=== PATIENT | female | born 1930 | race Caucasian/White ===

== ENCOUNTER 2018-04-24 04:10 | Inpatient (IN) | payer MEDICARE ==
[2018-04-24] MEDS ORDERED: Pantoprazole 40 MG VIAL ONE (04:42)
[2018-04-24 04:50] LABS: #Eosinphils 0.1 thou/uL (0.0-0.7); #Lymphocytes 1.7 thou/uL (1.20-3.40); #Monocytes 1.4 thou/uL (0.11-0.59); #Neutrophils 11.6 thou/uL (1.40-6.50); %Basophils 0.2 % (0.0-1.0); %Eosinophils 0.8 % (0.0-10.0); %Lymphocytes 11.3 % (21.0-51.0); %Monocytes 9.6 % (0.0-10.0); Hemoglobin 12.6 g/dL (12.0-16.0); Mean Corpuscular HGB CONC 32.4 g/dL (32.0-36.0); Mean Corpuscular Hemoglobin 28.7 pg (27.0-31.0); Mean Corpuscular Volume 88.7 fL (78.0-98.0); Mean Platelet Volume 8.3 fL (7.4-10.4); Platelet Count 235 thou/uL (130-400); RBC Distribution Width 12.4 % (11.5-14.5); Red Blood Cell (RBC) Count 4.38 mill/uL (4.20-5.40); White Blood Cell (WBC) Count 14.8 thou/uL (4.8-10.8)
[2018-04-24 05:18] LABS: ALT (SGPT) Less than 7 U/L (8-55); AST (SGOT) 14 U/L (5-34); Albumin 3.6 g/dL (3.4-4.8); Alkaline Phosphatase 88 U/L (40-150); Anion Gap 14 mmol/L (10-20); BUN (Urea Nitrogen) 18 mg/dL (9.8-20.1); Bilirubin, Total 0.6 mg/dL (0.2-1.2); Calc. Creatinine Clearance 0 mL/min (70-130); Calcium 9.6 mg/dL (7.8-10.44); Carbon Dioxide 28 mmol/L (23-31); Chloride 100 mmol/L (98-107); Estimated GFR-MDRD 56; Globulin 3.1 g/dL (2.4-3.5); Glucose 134 mg/dL (83-110); Lipase 15 U/L (8-78); Protein, Total 6.7 g/dL (6.0-8.3); Sodium 139 mmol/L (136-145)
[2018-04-24] MEDS ORDERED: Piperacillin/Tazobactam 4.5 GM VIAL ONE (06:38)
[2018-04-24] MEDS ORDERED: Potassium Chloride 40 MEQ in Sodium Chloride 0.9% 250 ML 250 ML IVPB SCH (06:45)
--- NOTE | 2018-04-24 07:57 | CT ---
CT ABDOMEN AND PELVIS WITH CONTRAST: Date: 04/24/18 CLINICAL INDICATION: Abdominal pain. No prior comparison. FINDINGS: There is limited evaluation of the bowel without enteric contrast. An inflammatory nidus is centered just proximal to the ileocecal valve where there is fat stranding and focal fluid. This is inseparabl e from adjacent terminal ileum. There is a very small appendix seen emanating from the cecal apex, an d does appear separate from the nidus of inflammation. Within this region, focal fluid collection snehal sures approximately 2.7 cm in diameter. This favors an abscess, which is intimately associated with t erminal small bowel wall and abuts the cecum. An underlying mass is not excluded. There is resultant patulous fluid-filled proximal right hemicolon. There are multiple small right renal hypodensities. T here is a small left renal hypodensity. These findings are statistically cysts, although many are too small to further characterize. There are granulomatous calcifications within the spleen. There is a slight nodular contour of the liver without a discrete hepatic mass. No adrenal mass. Fibrosis is see n at partially imaged lung bases. No disseminated free air. Scattered vascular disease present. There are several retroperitoneal lymph nodes visualized, although not pathologically enlarged. The is mod erate distention of the gallbladder. Urinary bladder is unopacified and decompressed. Prominent degen erative change within osseous structures is present. There is levoscoliosis of the lumbar spine. IMPRESSION: Inflammatory nidus of right lower quadrant, inseparable from terminal ileum and abutting the cecum wi th a focal fluid density collection as discussed above. Primary considerations would include focal in flammation, either related to an infectious process or malignancy centered near the ileocecal valve. Hypodense collection could reflect developing abscess, which is not amenable to percutaneous drainage due to its intimate relationship with bowel wall, or could reflect a necrotic, hypodense mass. Recom mend surgical consultation in this regard. POS: DELLA
[2018-04-24] MEDS ORDERED: Ondansetron ODT 4 MG TAB PO PRN (08:33)
[2018-04-24] MEDS ORDERED: hydrALAZINE 20 MG/ML VIAL SLOW IVP PRN (08:33)
[2018-04-24] MEDS ORDERED: Diabetic Tussin 200 MG/10 ML UDCUP PO PRN (08:33)
[2018-04-24] MEDS ORDERED: Eucerin (Mineral Oil/Petrolatum,White) 30 gm Jar TOP PRN (08:33)
[2018-04-24] MEDS ORDERED: Sodium Chloride 0.65% Nasal 44 ML BOT EA NARE PRN (08:33)
[2018-04-24] MEDS ORDERED: Calcium Carbonate 500 MG ChewTAB PO PRN (08:33)
[2018-04-24] MEDS ORDERED: Loperamide HCl 2 MG CAP PO PRN (08:33)
[2018-04-24] MEDS ORDERED: HYDROcodone/Acetaminophen 5/325 mg Tablet PO PRN (08:33)
[2018-04-24] MEDS ORDERED: Acetaminophen 325 MG TAB PO PRN (08:33)
[2018-04-24] MEDS ORDERED: Morphine 2 MG/ML SYRINGE SLOW IVP PRN (08:33)
[2018-04-24] MEDS ORDERED: Cepastat Lozenges 1 LOZ PO PRN (08:33)
[2018-04-24] MEDS ORDERED: Artificial Tears 18 DROP/0.9 ML EA EYE PRN (08:33)
[2018-04-24] MEDS ORDERED: Senokot S 8.6-50 MG TAB PO PRN (08:33)
[2018-04-24] MEDS ORDERED: Ondansetron PF 4 MG/2 ML Vial IVP PRN (08:33)
[2018-04-24] MEDS ORDERED: Bisacodyl 10 MG SUPP PR PRN (08:33)
[2018-04-24] MEDS ORDERED: Loratadine 10 MG TAB PO PRN (08:33)
[2018-04-24 10:31] VITALS: BMI 29.2
[2018-04-24] MEDS: Sodium Chloride 0.9% 1,000 ML IV SCH ×2 (10:38→10:56)
[2018-04-24] MEDS: Famotidine 20 MG TAB PO SCH ×2 (10:38→20:46)
[2018-04-24] MEDS: Enoxaparin Sodium 40 MG/0.4 ML SYRINGE SC SCH (10:38)
[2018-04-24] MEDS: Piperacillin/Tazobactam 3.375 GM in Sodium Chloride 0.9% 100 ML IVPB SCH ×2 (12:23→17:44)
--- NOTE | 2018-04-24 12:39 | HP ---
PRIMARY CARE PHYSICIAN: Dr. Mick Hill. REASON FOR ADMISSION: Abdominal pain. HISTORY OF PRESENT ILLNESS: This is an 87-year-old female, who has underlying senile dementia. She has sensorineural deafness, who presented to the emergency room for evaluation of abdominal pain. The patient was feeling diffuse predominantly right lower quadrant abdominal pain. She was also feeling bloated. She was feeling gas discomfort. Her symptoms were getting worse after food. Her pain was about 6/10 in intensity. It was constant. Nothing was in particular reliving or aggravating. She did not have any UTI symptoms. She denies any constipation, diarrhea, melena, or hematochezia. She denies any abdominal distention. She denies any fever or chills. In the emergency room, the patient had low-grade fever. Routine blood test showed leukocytosis, and CT abdomen and pelvis found with inflammatory process near by cecum. There was a focal fluid collection about 2.7 cm in diameter that was suspected for abscess. Dr. Ga was consulted from emergency room. Currently, the patient is being admitted for further evaluation and treatment. PAST MEDICAL HISTORY: History of colon stricture, breast cancer, and hypertension. PAST SURGICAL HISTORY: Hysterectomy and mastectomy of the left breast. PAST PSYCHIATRIC HISTORY: Reviewed and negative. SOCIAL HISTORY: The patient lives at home with family. No history of tobacco, alcohol, or illicit drug abuse. FAMILY HISTORY: No family history of coronary artery disease, stroke, or cancer. ALLERGIES: SULFA DRUGS. CURRENT HOME MEDICATIONS: 1. Aspirin 325 mg daily. 2. Hydrochlorothiazide 50 mg daily. 3. Lisinopril 20 mg p.o. daily. 4. Toprol-XL 50 mg p.o. daily. EMERGENCY ROOM COURSE: The patient has received Zosyn, IV fluid, Protonix 40 mg, and potassium chloride 40 mEq. REVIEW OF SYSTEMS: CONSTITUTIONAL: Negative for weight loss or gain, ability to conduct usual activities. SKIN: Negative for rash, itching. EYES: Negative for double vision, pain. ENT/MOUTH: Negative for nose bleeding, neck stiffness, pain, tenderness. CARDIOVASCULAR: Negative for palpitations, dyspnea on exertion, orthopnea. RESPIRATORY: Negative for shortness of breath, wheezing, cough, hemoptysis, fever or night sweats. GASTROINTESTINAL: Negative for poor appetite, abdominal pain, heartburn, nausea, vomiting, constipation, or diarrhea. GENITOURINARY: Negative for urgency, frequency, dysuria, nocturia. MUSCULOSKELETAL: Negative for pain, swelling. NEUROLOGIC/PSYCHIATRIC: Negative for anxiety, depression. ALLERGY/IMMUNOLOGIC: Negative for skin rash, bleeding tendency. Please see my HPI for pertinent positive and negative. All other review of systems reviewed and negative except as mentioned in the HPI. PHYSICAL EXAMINATION: VITAL SIGNS: Currently, blood pressure 127/71, pulse 79, respiratory rate 20, temperature 99.1, and saturation 92% on room air. Weight 80.7 kg. GENERAL: The patient is currently alert and awake. No obvious acute distress. HEENT: Head, normocephalic and atraumatic. Eyes; pupils round, reactive to light. Extraocular muscle intact. ENT, oropharynx within normal limits. Moist mucous membranes. No oral lesion. No pharyngeal erythema. No exudate. NECK: Supple. No JVD. No thyromegaly. No carotid bruit. No jugular venous distention. LUNGS: Clear to auscultation without any rhonchi or rales. CARDIAC: S1 and S2 regular. No murmur. No gallop. No rub. ABDOMEN: The patient does have diffuse vague discomfort noted predominantly in right lower quadrant as well as in the periumbilical area. Bowel sounds present. Nondistended. No peritoneal sign. No guarding. No rigidity. BACK: Unremarkable. No CVA tenderness. EXTREMITIES: Upper extremities, passive movement of all joints are normal. Lower extremity, no edema. No calf tenderness. SKIN: No skin rash. HEMATOLOGIC: No lymphadenopathy. NEUROLOGIC: Nonfocal examination. DIAGNOSTIC STUDIES: Significant labs; EKG showing normal sinus rhythm, nonspecific ST-T changes, left axis deviation, and LVH. CT abdomen and pelvis reported as in right lower quadrant there is a fluid collection 2.7 cm in diameter, suspicious for abscess. There is some inflammatory process in that area. CBC; WBC 14.9, hemoglobin 12.6, and platelets 235. Sodium 139, potassium 3.0, chloride 100, carbon dioxide 28, BUN 18, creatinine 0.94, glucose 134, calcium 9.6, lactic acid 1.8, magnesium 1.7. LFT; AST 14, ALT less than 7, alkaline phosphatase 88, albumin 3.6, and lipase 15. Troponin I 0.010. ASSESSMENT AND PLAN: 1. Abdominal fluid collection in right lower quadrant, suspicious for abscess. Source of infection is unclear at this point, suspecting from surrounding small intestine. Appendix appears normal on CT examination. The patient is going to be admitted to surgical floor. General Surgery will be consulted for their opinion. At this point, we will start empiric antibiotic therapy with Zosyn 3.375 g IV q.6 hourly. We will continue with IV fluid. We will keep her n.p.o. until surgeon sees her. Most likely, this patient will need IV antibiotic therapy and conservative therapy because collection is too small to drain through percutaneous. If needed, we will consult refining engineer as well. Meanwhile, we will treat conservatively and control her pain with morphine on a p.r.n. basis. 2. Hypokalemia. Magnesium checked, which is normal. The patient is already receiving potassium chloride in the emergency room. We will continue with IV fluid and repeat labs tomorrow. 3. History of hypertension. If blood pressure permits, then we will continue lisinopril and Toprol-XL. We will hold on hydrochlorothiazide therapy. 4. Deep venous thrombosis prophylaxis, Lovenox 40 mg subcu daily and gastrointestinal prophylaxis, Pepcid 20 mg p.o. b.i.d. 5. Anxiety and depression. We will continue Xanax 0.5 mg p.o. daily and Zoloft 25 mg p.o. daily. CODE STATUS: The patient is a full code. The patient's daughter is surrogate decision maker. DISPOSITION PLAN: Based on clinical course, we are expecting the patient's stay in hospital more than 2 midnights. Plan of care discussed with the patient. Job ID: [id number]
[2018-04-24] MEDS: 1/2 NS w/KCL 20 mEq 1,000 ML IV SCH ×2 (13:56→20:47)
[2018-04-24] MEDS ORDERED: ISOVUE-370 76%-LOCM 1 ML ONE (16:22)
--- NOTE | 2018-04-24 20:25 | CON ---
DATE OF CONSULTATION: 04/24/2018 HISTORY OF PRESENT ILLNESS: The patient is an 87-year-old woman with history of senile dementia of Alzheimer type. She presented to the emergency department with insidious onset generalized upper abdominal pain which was bandlike across in the midline bilaterally. Pain started yesterday morning and intensified overnight. The patient denies any fevers or chills. Pain is now mostly in the right lower quadrant. Last bowel movement was two days ago. She does not recall last time she passed flatus. She has a chronic history of constipation, which requires her to take stool softeners to have bowel movements. She denies any unexplained weight loss. She did have a colonoscopy two years ago which was reportedly normal except for stricture in her colon. She was not specific as far as the site of the stricture. PAST MEDICAL HISTORY: Pertinent for left breast carcinoma, essential hypertension, bladder carcinoma, and colonic stricture. PAST SURGICAL HISTORY: Pertinent for total abdominal hysterectomy with bilateral salpingo-oophorectomy, left mastectomy, bladder tumor resection, colonoscopy two years ago. SOCIAL HISTORY: The patient lives at home with her family. She had approximately 20-pack year cigarette smoking history, has not smoked in over 30 years now. She has no alcohol or illicit drug abuse history. FAMILY HISTORY: Noncontributory for this patient's age. PREHOSPITALIZATION MEDICATIONS: Include 1. Toprol-XL 50 mg p.o. daily. 2. Hydrochlorothiazide 50 mg p.o. daily. 3. Lisinopril 20 mg p.o. daily. 4. Aspirin 325 mg p.o. daily. ALLERGIES: TO SULFA DRUGS. REVIEW OF SYSTEMS: A 10-point review of systems essentially unremarkable except as stated in past medical history and chief complaint. PHYSICAL EXAMINATION: GENERAL: This reveals an 87-year-old normally developed woman, who is otherwise interactive, occasionally confused, moves all extremities and follows commands. She is at baseline of senile dementia as confirmed by her family at bedside. She otherwise appears to be in no acute distress at time of my evaluation. VITAL SIGNS: Include blood pressure 128/59, pulse 65, respiratory rate is 18, temperature is 98.1 degrees Fahrenheit, oxygen saturation 93% on room air. HEENT: Reveals normocephalic and atraumatic. She has no jugular venous distention noted. HEART: Reveals regular rate and rhythm. No murmurs or gallops auscultated. LUNGS: Clear to auscultation bilaterally. Breathing, regular, nonlabored. ABDOMEN: Soft with mild to moderate right lower quadrant tenderness to palpation. She rates her pain now a 5/10 in contrast to "12/10" yesterday. She clearly has no gross rebound tenderness on examination. Liver and spleen are nonpalpable below costal margin. She has an infraumbilical midline incision consistent with previous history of total abdominal hysterectomy. NEUROLOGIC: Reveals no focal deficits present. LABORATORY DATA: Pertinent laboratory findings today include a CBC with 14,800 white blood cells, hemoglobin and hematocrit 12.6 and 38.9 respectively. Platelet count is 235,000. Metabolic profile; sodium 139, potassium is 3.0, chloride is 100, bicarb is 28, BUN 18, creatinine 0.94, glucose is 134, AST and ALT noted at 14 and less than 7 respectively. Serum lipase is normal at 15. I have personally reviewed the CT scan of the abdomen and pelvis, which was obtained without contrast. This is notable for an inflammatory process in the terminal ileum extending to the cecum. There is also some fluid collection with no air-fluid levels adjacent to the ileocecal junction. A small appendix is noted. There is no pneumoperitoneum present. IMPRESSION: Resolving abdominal pain with right lower quadrant small abscess in the ileocecal junction. The etiology of this abscess is unknown. This may represent micro-perforated appendix at the base with infection versus from other causes. RECOMMENDATION: Since the abscess is not amenable to percutaneous radiographic guided abscess drainage, this lives us with two options. One is broad-spectrum antibiotic therapy with hopes that this would resolve the infectious process. Alternatively, laparoscopic abscess drainage to be entertained with laparoscopic appendectomy at the time even if the appendix is normal. I have discussed the above options with the patient and her family at bedside. I personally favor medical management at this time. Failure of which will then necessitate laparoscopic surgical intervention. The patient and her family have indicated understanding of information I have given them today. General Surgery will continue to follow the patient along and make further recommendations as necessary. Thank you again, Dr. Santiago, for allowing me the opportunity to participate in the care of this patient. Job ID: [id number]
[2018-04-24] MEDS: Zolpidem Tartrate 5 MG TAB PO PRN (20:48)
[2018-04-25] MEDS: Piperacillin/Tazobactam 3.375 GM in Sodium Chloride 0.9% 100 ML IVPB SCH ×2 (00:18→05:57)
[2018-04-25] MEDS: 1/2 NS w/KCL 20 mEq 1,000 ML IV SCH ×2 (05:59→08:15)
[2018-04-25 06:23] LABS: #Eosinphils 0.2 thou/uL (0.0-0.7); #Lymphocytes 1.2 thou/uL (1.20-3.40); #Monocytes 0.8 thou/uL (0.11-0.59); #Neutrophils 6.4 thou/uL (1.40-6.50); %Basophils 0.2 % (0.0-1.0); %Eosinophils 2.7 % (0.0-10.0); %Lymphocytes 14.4 % (21.0-51.0); %Monocytes 8.8 % (0.0-10.0); %Neutrophils 73.8 % (42.0-75.0); Hemoglobin 11.6 g/dL (12.0-16.0); Mean Corpuscular HGB CONC 31.4 g/dL (32.0-36.0); Mean Corpuscular Hemoglobin 28.4 pg (27.0-31.0); Mean Corpuscular Volume 90.5 fL (78.0-98.0); Mean Platelet Volume 8.5 fL (7.4-10.4); Platelet Count 179 thou/uL (130-400); RBC Distribution Width 12.5 % (11.5-14.5); Red Blood Cell (RBC) Count 4.07 mill/uL (4.20-5.40); White Blood Cell (WBC) Count 8.6 thou/uL (4.8-10.8)
[2018-04-25 06:45] LABS: ALT (SGPT) Less than 7 U/L (8-55); AST (SGOT) 16 U/L (5-34); Albumin 3.2 g/dL (3.4-4.8); Alkaline Phosphatase 74 U/L (40-150); Anion Gap 11 mmol/L (10-20); BUN (Urea Nitrogen) 12 mg/dL (9.8-20.1); Bilirubin, Total 0.5 mg/dL (0.2-1.2); Calc. Creatinine Clearance 62 mL/min (70-130); Calcium 8.9 mg/dL (7.8-10.44); Carbon Dioxide 29 mmol/L (23-31); Chloride 106 mmol/L (98-107); Estimated GFR-MDRD 73; Globulin 2.8 g/dL (2.4-3.5); Glucose 98 mg/dL (83-110); Potassium 3.6 mmol/L (3.5-5.1); Sodium 142 mmol/L (136-145)
[2018-04-25] MEDS: ALPRAZolam 0.5 MG TAB PO SCH (08:11)
[2018-04-25] MEDS: Enoxaparin Sodium 40 MG/0.4 ML SYRINGE SC SCH (08:12)
[2018-04-25] MEDS: Famotidine 20 MG TAB PO SCH ×2 (08:12→21:53)
[2018-04-25] MEDS: Lisinopril 20 MG TAB PO SCH (08:13)
--- NOTE | 2018-04-25 10:21 | PDOC.PN ---
- Subjective Encounter Start Date: 04/25/18 Encounter Start Time: 08:30 -: old records requested/rev Patient seen and examined. No new complaints. No overnight events - Objective Resuscitation Status - Order Detail: 04/24/18 08:28 Resuscitation Status Routine Resuscitation Status: FULL: Full Resuscitation MAR Reviewed: Yes Vital Signs & Weight: Vital Signs (12 hours) Temp Pulse Resp BP BP Pulse Ox 04/25/18 08:13 117/69 04/25/18 08:00 97.6 F 65 20 117/69 95 04/25/18 04:24 98.1 F 71 20 139/69 93 L 04/25/18 00:31 97.9 F 71 20 134/84 93 L Weight Weight 170 lb I&O: 04/24/18 04/25/18 04/26/18 06:59 06:59 06:59 Intake Total 3285 300 Balance 3285 300 Result Diagrams: 04/25/18 05:41 04/25/18 05:41 Phys Exam - Physical Examination Constitutional: NAD HEENT: PERRLA, moist MMs, sclera anicteric Neck: no JVD, supple Respiratory: no wheezing, no rales, no rhonchi Cardiovascular: RRR, no significant murmur, no rub Gastrointestinal: soft, non-tender, no distention, positive bowel sounds Musculoskeletal: no edema, pulses present Neurological: non-focal, normal sensation, moves all 4 limbs Lymphatic: no nodes Psychiatric: normal affect, A&O x 3 Skin: no rash, normal turgor Dx/Plan (1) Intra-abdominal abscess Code(s): K65.1 - PERITONEAL ABSCESS Status: Acute (2) Hypokalemia Code(s): E87.6 - HYPOKALEMIA Status: Acute (3) Anxiety and depression Code(s): F41.9 - ANXIETY DISORDER, UNSPECIFIED; F32.9 - MAJOR DEPRESSIVE DISORDER, SINGLE EPISODE, UNSPECIFIED Status: Chronic (4) Hypertension Code(s): I10 - ESSENTIAL (PRIMARY) HYPERTENSION Status: Chronic - Plan cont current plan of care, plan discussed w/ family, continue antibiotics * pt has clinical improvement with iv antibiotics * spoke with son bedside and updated plan * medication reviewed as below * symptomatic treatment * advance to full liquid diet. Review of Systems - Review of Systems ENT: negative: Ear Pain, Ear Discharge, Nose Pain, Nose Discharge, Nose Congestion, Mouth Pain, Mouth Swelling, Throat Pain, Throat Swelling, Other Respiratory: negative: Cough, Dry, Shortness of Breath, Hemoptysis, SOB with Excertion, Pleuritic Pain, Sputum, Wheezing Cardiovascular: negative: chest pain, palpitations, orthopnea, paroxysmal nocturnal dyspnea, edema, light headedness, other Gastrointestinal: negative: Nausea, Vomiting, Abdominal Pain, Diarrhea, Constipation, Melena, Hematochezia, Other Genitourinary: negative: Dysuria, Frequency, Incontinence, Hematuria, Retention , Other Musculoskeletal: negative: Neck Pain, Shoulder Pain, Arm Pain, Back Pain, Hand Pain, Leg Pain, Foot Pain, Other Skin: negative: Rash, Lesions, Behzad, Bruising, Other - Medications/Allergies Allergies/Adverse Reactions: Allergies Allergy/AdvReac Type Severity Reaction Status Date / Time sulfamethoxazole Allergy Verified 04/24/18 10:26 [From Bactrim] trimethoprim [From Bactrim] Allergy Verified 04/24/18 10:26 Medications: Current Medications Acetaminophen (Tylenol) 650 mg PO Q4H PRN PRN Reason: Headache/Fever/Mild Pain (1-3) Hydrocodone Bitart/Acetaminophen ([place] 5/325) 1 tab PO Q4H PRN PRN Reason: Moderate Pain (4-6) Alprazolam (Xanax) 0.5 mg PO DAILY [facility] Last Admin: 04/25/18 08:11 Dose: 0.5 mg Artificial Tears (Tears Naturale) 2 drop EA EYE PRN PRN PRN Reason: Dry Eyes Bisacodyl (Dulcolax) 10 mg GA DAILYPRN PRN PRN Reason: Constipation Calcium Carbonate (Tums) 1,000 mg PO Q4H PRN PRN Reason: Heartburn or Indigestion Enoxaparin Sodium (Lovenox) 40 mg SC 0900 [facility] Last Admin: 04/25/18 08:12 Dose: 40 mg Famotidine (Pepcid) 20 mg PO BID [facility] Last Admin: 04/25/18 08:12 Dose: 20 mg Guaifenesin (Robitussin Sf) 200 mg PO Q4H PRN PRN Reason: Cough Hydralazine HCl (Apresoline) 10 mg SLOW IVP Q4H PRN PRN Reason: SBP > 180 and HR < 70 Piperacillin Sod/Tazobactam (Sod 3.375 gm/ Sodium Chloride) 100 mls @ 200 mls/ hr IVPB Q6HR [facility] Last Admin: 04/25/18 05:57 Dose: 100 mls Potassium Chloride/Sodium Chloride (1/2 Ns W/Kcl 20 Meq) 1,000 mls @ 125 mls/ hr IV .Q8H [facility] Last Admin: 04/25/18 08:15 Dose: 1,000 mls Lisinopril (Zestril) 20 mg PO DAILY [facility] Last Admin: 04/25/18 08:13 Dose: 20 mg Loperamide HCl (Imodium) 2 mg PO PRN PRN PRN Reason: Diarrhea/Loose Stools Loratadine (Claritin) 10 mg PO DAILYPRN PRN PRN Reason: Sinus Symptoms Metoprolol Succinate (Toprol Xl) 50 mg PO DAILY [facility] Last Admin: 04/25/18 08:13 Dose: 50 mg Mineral Oil/White Petrolatum (Eucerin Cream) 0 gm TOP BIDPRN PRN PRN Reason: Dry Skin Morphine Sulfate (Morphine) 2 mg SLOW IVP Q4H PRN PRN Reason: Severe Pain (7-10) Ondansetron HCl (Zofran Odt) 4 mg PO Q6H PRN PRN Reason: Nausea/Vomiting Ondansetron HCl (Zofran) 4 mg IVP Q6H PRN PRN Reason: Nausea/Vomiting Senna/Docusate Sodium (Senokot S) 2 tab PO BID PRN PRN Reason: Constipation Sertraline HCl (Zoloft) 25 mg PO DAILY [facility] Last Admin: 04/25/18 08:13 Dose: 25 mg Sodium Chloride ([place] Nasal Reading 0.65%) 0 ml EA NARE QIDPRN PRN PRN Reason: Nasal Congestion Throat Lozenges (Cepastat Lozenges) 1 deonte PO Q2H PRN PRN Reason: Sore Throat Zolpidem Tartrate (Ambien) 5 mg PO HSPRN PRN PRN Reason: Insomnia Last Admin: 04/24/18 20:48 Dose: 5 mg
[2018-04-25] MEDS ORDERED: Amoxicillin/Potassium Clav 500 MG TAB PO SCH (11:15)
[2018-04-25] MEDS ORDERED: Amoxicillin/Potassium Clav 875 MG TAB PO SCH (11:30)
--- NOTE | 2018-04-25 19:04 | PRG ---
DATE OF SERVICE: 04/25/2018 SUBJECTIVE: The patient is an 87-year-old woman, we are seeing in consultation for intra-abdominal abscess. The patient has done well overnight. She is currently on IV antibiotics. Her pain is controlled and she has had a bowel movement. She has remained afebrile and tolerated her liquid diet last night. OBJECTIVE: VITAL SIGNS: Temperature is 97.6, heart rate 65, blood pressure 117/69, respirations 20, and oxygen saturation 95% on room air. GENERAL: The patient is resting comfortably in bed. She is awake, alert, and oriented. LUNGS: Clear to auscultation with good inspiratory and expiratory effort. HEART: Regular rate and rhythm. ABDOMEN: Soft, flat, and nontender with active bowel sounds. LABORATORY FINDINGS: White blood cell count 8.6, hemoglobin 11.6, hematocrit 36.8, and platelets 179. Sodium 142, potassium 3.6, chloride 106, CO2 of 29, BUN 12, creatinine 0.75, and glucose 78. There are no radiographs to review this morning. ASSESSMENT: Resolving abdominal pain with right lower quadrant small abscess in the ileocecal junction. PLAN: Plan will be to discontinue her IV antibiotics, transition her to Augmentin, which she will need for 14 days. We will advance her diet and if she tolerates this diet from our standpoint, she may be discharged home tomorrow again with 14 days of p.o. antibiotics, specifically Augmentin 875 twice a day. The patient also need to see us in clinic in 14 days. Prior to that, we will need to get a repeat abdominal and pelvis CT with IV and p.o. contrast. The patient may call our clinic to arrange time and date of these appointments. The patient was seen this morning with Dr. Ga during rounds. Job ID: [id number]
[2018-04-25] MEDS: Amoxicillin/Potassium Clav 875 MG TAB PO SCH (21:53)
[2018-04-25] MEDS: Zolpidem Tartrate 5 MG TAB PO PRN (21:59)
[2018-04-26 08:28] VITALS: BP 144/72; TEMP 97.7
[2018-04-26] MEDS: ALPRAZolam 0.5 MG TAB PO SCH (08:51)
[2018-04-26] MEDS: Enoxaparin Sodium 40 MG/0.4 ML SYRINGE SC SCH (08:52)
[2018-04-26] MEDS: Amoxicillin/Potassium Clav 875 MG TAB PO SCH (08:52)
[2018-04-26] MEDS: Famotidine 20 MG TAB PO SCH (08:52)
[2018-04-26] MEDS: Lisinopril 20 MG TAB PO SCH (08:52)
--- NOTE | 2018-04-26 09:58 | DIS ---
DATE OF ADMISSION: 04/24/2018 DATE OF DISCHARGE: 04/26/2018 PRIMARY CARE PHYSICIAN: Mick Hill MD DISCHARGE DISPOSITION: Home. PRIMARY DISCHARGE DIAGNOSES: 1. Intra-abdominal abscess. 2. Hypokalemia. SECONDARY DISCHARGE DIAGNOSES: Anxiety and depression, hypertension. PRIMARY PROCEDURE/OPERATION: None. RADIOLOGICAL INVESTIGATION: Abdomen and pelvis CT scan showed small intra-abdominal fluid collection consistent with abscess. SIGNIFICANT LABORATORY DATA: WBC 8.6, hemoglobin 11.6, platelets 179. Sodium 142, potassium 3.6, BUN 12, creatinine 0.75, calcium 8.9. LFT normal. DISCHARGE MEDICATIONS: 1. Xanax 0.5 mg p.o. daily. 2. Aspirin 81 mg p.o. daily. 3. Hydrochlorothiazide 50 mg p.o. daily. 4. Lisinopril 20 mg daily. 5. Toprol-XL 50 mg p.o. daily. 6. Zoloft 100 mg p.o. daily. 7. Zocor 40 mg p.o. q.h.s. 8. Augmentin 875 mg twice daily for 15 days. 9. Florastor 250 mg p.o. daily for 15 days. CONTRAINDICATION: None. CODE STATUS: Full code. INPATIENT DIGITAL MARKETING SPECIALIST: Dr. Ga was consulted while in hospital. TEST RESULTS PENDING ON DISCHARGE: None. ALLERGIES: SULFA DRUGS. DISCHARGE PLAN: Posthospital, the patient will follow up with Dr. Ga in 2 weeks. The patient will need up outpatient repeat CT scan. HOSPITAL COURSE: An 87-year-old female, who was admitted by me. Please see my HPI for further details. The patient was admitted for abdominal pain predominantly in right lower quadrant. She had CT abdomen and pelvis, which showed some fluid collection in that area. She had initially leukocytosis. Fluid collection was too small to drain percutaneously and that is why we treated her conservatively with broad-spectrum antibiotic therapy with Zosyn. On discharge, we changed to Augmentin. Dr. Ga was following while in hospital and he also recommended that conservative treatment option will be better and he will see her as an outpatient basis in 2 weeks. At that time, he will order repeat CT abdomen and pelvis. The patient is seen and examined at bedside today. All review of systemsreviewed with her and are negative. Plan of care discussed with the patient and family member. PHYSICAL EXAMINATION: VITAL SIGNS: Currently, temperature 97.7, pulse 66, respiratory rate 20, saturation 92%, blood pressure 144/72, weight 170 pounds. GENERAL: The patient is currently alert, awake, in no obvious acute distress. HEENT: Head; normocephalic, atraumatic. Eyes; pupils round, reactive to light. Extraocular muscle intact. ENT; oropharynx within normal limits. Moist mucous membranes. No oral lesion. No pharyngeal erythema. No exudate. NECK: Supple. LUNGS: Clear to auscultation without any rhonchi or rales. CARDIAC: S1 and S2. Regular without any murmur. ABDOMEN: Soft and benign without any tenderness. No peritoneal sign. EXTREMITIES: No edema. NEUROLOGIC: Nonfocal examination. FOLLOWUP: The patient will follow up with primary care physician and Dr. Ga as instructed. Job ID: [id number]
== END 2018-04-26 11:42 | disposition home or self-care (01) | DRG 372 ==
LOC: ERS 04:10 → ERHOLD 07:28 → SURG A 09:42
PROVIDERS: ADMIT Internal Medicine; ATTEND Internal Medicine
DX: K65.1 Peritoneal abscess (principal); R18.8 Other ascites; E87.6 Hypokalemia; I10 Essential (primary) hypertension; F41.9 Anxiety disorder, unspecified; F32.9 Major depressive disorder, single episode, unspecified
CPT/HCPCS: 36415; 74177; 80053; 83605; 83690; 83735; 84484; 85025; 93005; 96361; 96365; 96366; 96367; C9113; J1650; J2543; J3480; J7050; Q9966

== ENCOUNTER 2018-05-02 13:22 | Outpatient (CLI) | payer MEDICARE ==
[~2018-05-02 13:22] MED LIST: Iopamidol 370 76% 100 ML VIAL ONE
--- NOTE | 2018-05-02 16:10 | CT ---
CT ABDOMEN AND PELVIS WITH IV AND ORAL CONTRAST 05/02/18 HISTORY: Abdominal pain and possible abscess. Followup. COMPARISON: 04/24/18. FINDINGS: The lung bases are clear. Fatty lesion associated with the right latissimus muscles partially visuali zed and appears unchanged. Calcified granulomata of the abdomen are consistent with healed granulomat ous disease. There is calcification within the arterial structures. Degenerative changes of lumbar sp ine. At the terminal ileum, minimal circumferential wall thickening and adjacent fat stranding remain with small amounts of nonspecific adjacent mesenteric lymph nodes. The inflammation is much less pronounc ed than on the prior exam. No new areas of inflammation, free fluid, or free intraperitoneal gas are apparent. IMPRESSION: 1. Near complete interval resolution of the inflammation of the terminal ileum. No new abnormali ties are apparent. 2. Atherosclerosis. POS: SANDRO
== END 2018-05-02 13:23 | disposition home or self-care (01) ==
LOC: BICCT 13:22
PROVIDERS: ATTEND Physician Assistant
DX: K65.1 Peritoneal abscess (principal); I70.0 Atherosclerosis of aorta
CPT/HCPCS: 74177; Q9967